=== PATIENT | female | born 1945 | race African-American/Black ===

== ENCOUNTER 2017-08-25 17:53 | Emergency (ER) | payer MEDICARE ==
[2017-08-25] MEDS ORDERED: NORMAL SALINE 1000 ML 1,000 ML IV ONE (18:23)
--- NOTE | 2017-08-25 19:00 | RADIOLOGY REPORT (SQ) ---
EXAM DESCRIPTION: CT HEAD WITHOUT COMPLETED DATE/TIME: 08/25/2017 6:13 pm REASON FOR STUDY: AMS COMPARISON: None. TECHNIQUE: Axial images acquired through the brain without intravenous contrast. Images reviewed wi th bone, brain and subdural windows. Additional sagittal and coronal reconstructions were generated. Images stored on PACS. All CT scanners at this facility use dose modulation, iterative reconstruction, and/or weight based d osing when appropriate to reduce radiation dose to as low as reasonably achievable (ALARA). [facility]: Dose Right [facility]: CareDose [facility]: Dose Right [facility]: Teradose 4D [facility]: Rattle RADIATION DOSE: mGy. LIMITATIONS: None. FINDINGS: VENTRICLES: Prominent. CEREBRUM: No masses. No hemorrhage. No midline shift. Areas of low density in the white matter mos t likely due to chronic micro-vascular ischemic change. No evidence for acute infarction. CEREBELLUM: No masses. No hemorrhage. No alteration of density. No evidence for acute infarction. EXTRAAXIAL SPACES: Mild age-related involutional change. No fluid collections. No masses. ORBITS AND GLOBE: No intra- or extraconal masses. Normal contour of globe without masses. CALVARIUM: No fracture. PARANASAL SINUSES: No fluid or mucosal thickening. SOFT TISSUES: No mass or hematoma. OTHER: No other significant finding. IMPRESSION: MILD CHRONIC CHANGES OF ATROPHY AND MICROVASCULAR ISCHEMIA. NO ACUTE PROCESS. EVIDENCE OF ACUTE STROKE: No TECHNICAL DOCUMENTATION: JOB ID: [id number] Quality ID # [id number]: Final reports with documentation of one or more dose reduction techniques (e.g., Au tomated exposure control, adjustment of the mA and/or kV according to patient size, use of iterative reconstruction technique) 2010 [employer]- All Rights Reserved Reading location - IP/workstation name: [email or web address]
[2017-08-25 19:04] LABS: ABSOLUTE LYMPHOCYTES (AUTO) 0.5 10^3/uL (0.5-4.7); ABSOLUTE MONOCYTES (AUTO) 0.3 10^3/uL (0.1-1.4); ABSOLUTE NEUT (AUTO) 4.8 10^3/uL (1.7-8.2); BASOPHILS % (AUTO) 0.2 % (0-2); EOSINOPHILS % (AUTO) 0.7 % (0-6); HEMOGLOBIN 8.7 g/dL (12.0-15.5); LYMPHOCYTES % (AUTO) 9.3 % (13-45); MEAN CORPUSCULAR HEMOGLOBIN 30.2 pg (27.0-33.4); MEAN CORPUSCULAR HGB CONC 32.1 g/dL (32.0-36.0); MEAN CORPUSCULAR VOLUME 94 fl (80-97); MONOCYTES % (AUTO) 5.8 % (3-13); PLATELET COUNT 348 10^3/uL (150-450); RED BLOOD COUNT 2.87 10^6/uL (3.72-5.28); RED CELL DISTRIBUTION WIDTH 18.7 % (11.5-14.0); TOTAL CELLS COUNTED % (AUTO) 100 %; WHITE BLOOD COUNT 5.7 10^3/uL (4.0-10.5)
[2017-08-25 19:09] LABS: INTERNATIONAL RATION (INR) 1.13
[2017-08-25 19:10] LABS: PARTIAL THROMBOPLASTIN TIME 31.1 SEC (23.5-35.8)
--- NOTE | 2017-08-25 19:14 | RADIOLOGY REPORT (SQ) ---
EXAM DESCRIPTION: CHEST SINGLE VIEW COMPLETED DATE/TIME: 08/25/2017 7:02 pm REASON FOR STUDY: AMS COMPARISON: None. EXAM PARAMETERS: NUMBER OF VIEWS: One view. TECHNIQUE: Single frontal radiographic view of the chest acquired. RADIATION DOSE: NA LIMITATIONS: None. FINDINGS: LUNGS AND PLEURA: Parenchymal opacity at the left lung base. Right lung is clear. MEDIASTINUM AND HILAR STRUCTURES: No masses. Contour normal. HEART AND VASCULAR STRUCTURES: Heart normal in size. Normal vasculature. BONES: No acute findings. HARDWARE: None in the chest. OTHER: No other significant finding. IMPRESSION: Left lower lobe pneumonia. TECHNICAL DOCUMENTATION: JOB ID: [id number] [employer]- All Rights Reserved Reading location - IP/workstation name: [email or web address]
[2017-08-25 19:28] LABS: ALANINE AMINOTRANSFERASE 17 U/L (9-52); ALBUMIN 2.7 g/dL (3.5-5.0); ALKALINE PHOSPHATASE 85 U/L (38-126); ANION GAP 13 (5-19); ASPARTATE AMINO TRANSFERASE 21 U/L (14-36); BILIRUBIN,DIRECT 0.6 mg/dL (0.0-0.4); BILIRUBIN,TOTAL 0.6 mg/dL (0.2-1.3); BLOOD UREA NITROGEN 18 mg/dL (7-20); CALCIUM 8.3 mg/dL (8.4-10.2); CARBON DIOXIDE 20 mmol/L (22-30); CHLORIDE 112 mmol/L (98-107); CREATINE KINASE 28 U/L (30-135); GLUCOSE 82 mg/dL (75-110); POTASSIUM 5.9 mmol/L (3.6-5.0); SODIUM 145.2 mmol/L (137-145); TOTAL PROTEIN 6.7 g/dL (6.3-8.2)
[2017-08-25 19:41] LABS: TROPONIN I < 0.012 ng/mL
[2017-08-25] MEDS ORDERED: VANCOMYCIN HCL INJ 1000 MG VIAL IV ONE (21:29)
[2017-08-25] MEDS ORDERED: CEFEPIME 1 GM/D5W RTU 1 GM/50 ML RTUPB IV ONE (21:31)
--- NOTE | 2017-08-25 22:52 | EKG REPORT ---
SEVERITY:- ABNORMAL ECG - SINUS RHYTHM BORDERLINE LEFT AXIS DEVIATION NONSPECIFIC T ABNORMALITIES, LATERAL LEADS : Confirmed by: Jordi Scott MD 25-Aug-2017 22:51:15
--- NOTE | 2017-08-26 00:04 | ER Document Report ---
ED General - General Chief Complaint: Altered Mental Status Stated Complaint: POSSIBLE SEIZURE Time Seen by Provider: 08/25/17 18:17 Mode of Arrival: Stretcher Information source: Relative, Emergency Med Personnel - [facility] Patient complains to provider of: New-onset seizure Onset: Just prior to arrival Onset/Duration: Sudden Quality of pain: No pain Notes: Patient is a 71-year-old female with a history of normal cancer, who was brought to the emergency room by EMS for new onset seizure activity, patient has a long course of recent hospitalizations at [facility] over the last few months, was previously living at home alone prior to these hospitalizations, at one point time was discharged to a care facility, family was unhappy with the care she received her so they took her home to care for her over the past week, over the last 2 days patient's behavior has changed and become more bizarre, she is combative, uncooperative and family became concerned , she is hallucinating at home at times, today daughter noted patient did have a seizure lasting approximately 2 minutes, they called EMS, when EMS arrived they found patient to be having a another seizure with lasted less than 1 minutes, they apparently went out to the ambulance to get medication and by the time they returned the seizure had subsided, there is no known history of seizure disorder previously, patient's oncologist is in the [facility] area , because of her course of hospitalization locally over the past few months she has been unable to follow-up with them, daughter does report she has been coughing quite a bit at home as well, she knows of no fever, no vomiting or diarrhea - Related Data Allergies/Adverse Reactions: ampicillin Allergy (Verified 08/25/17 20:03) ciprofloxacin [From Cipro] Allergy (Verified 08/25/17 20:03) codeine Allergy (Verified 08/25/17 20:03) hydrocodone [From Vicodin] Allergy (Verified 08/25/17 20:03) Iodinated Contrast- Oral and IV Dye Allergy (Verified 08/25/17 20:03) penicillin G Allergy (Verified 08/25/17 20:03) propoxyphene [From Darvocet-N] Allergy (Verified 08/25/17 20:03) Sulfa (Sulfonamide Antibiotics) Allergy (Verified 08/25/17 20:03) morphine Adverse Reaction (Verified 08/25/17 20:03) Past Medical History - General Information source: Relative - Social History Smoking Status: Unknown if Ever Smoked Frequency of alcohol use: None Drug Abuse: None Family History: Reviewed & Not Pertinent Patient has suicidal ideation: No Patient has homicidal ideation: No Neurological Medical History: Reports: Hx Seizures Endocrine Medical History: Reports: Hx Diabetes Mellitus Type 2 Renal/ Medical History: Denies: Hx Peritoneal Dialysis GI Medical History: Reports: Hx Gastroesophageal Reflux Disease Past Surgical History: Reports: Hx Abdominal Surgery Review of Systems - Review of Systems Constitutional: No symptoms reported EENT: No symptoms reported Cardiovascular: No symptoms reported Respiratory: Cough Gastrointestinal: No symptoms reported Genitourinary: No symptoms reported Female Genitourinary: No symptoms reported Musculoskeletal: No symptoms reported Skin: No symptoms reported Hematologic/Lymphatic: No symptoms reported Neurological/Psychological: Seizure -: Yes All other systems reviewed and negative Physical Exam - Vital signs Vitals: Pulse Resp BP Pulse Ox 98 24 H 133/76 H 98 08/25/17 18:06 08/25/17 18:06 08/25/17 18:06 08/25/17 18:06 Interpretation: Tachypneic - General General appearance: Alert - HEENT Head: Normocephalic, Atraumatic Eyes: Normal Conjunctiva: Normal Pupils: PERRL Mucous membranes: Dry - Respiratory Respiratory status: No respiratory distress Chest status: Nontender Breath sounds: Normal Chest palpation: Normal - Cardiovascular Rhythm: Regular Heart sounds: Normal auscultation Murmur: No - Abdominal Inspection: Normal Distension: No distension Bowel sounds: Normal Tenderness: Nontender Organomegaly: No organomegaly - Back Back: Normal, Nontender - Extremities General upper extremity: Normal inspection, Nontender, Normal color, Normal ROM , Normal temperature General lower extremity: Normal inspection, Nontender, Normal color, Normal ROM , Normal temperature, Normal weight bearing. No: Anish's sign - Neurological Neuro grossly intact: Yes [place] Coma Scale Eye Opening: Spontaneous Mike Coma Scale Verbal: Confused Mike Coma Scale Motor: Obeys Commands Mike Coma Scale Total: 14 Sensory: Normal - Skin Skin Temperature: Warm Skin Moisture: Dry Skin Color: Normal Course - Re-evaluation Re-evalutation: 08/26/17 00:02 Patient with new onset seizures, history of renal cancer, and evidence of pneumonia on chest x-ray today, family did request that patient be transferred to [facility] as this is where her oncologist practices, given the fact that this facility does not have a neurology showroom sales consultant and patient has new onset seizures this is a reasonable request, therefore a call was placed to [facility], spoke with the emergency medicine physician Dr. Solorio who graciously accepts patient on ER to ER transfer, patient stable at time of transfer of care 08/26/17 00:34 Patient seen and evaluated at bedside, stable vital signs, no further seizure activity noted while in the emergency department, patient stable for transport to tertiary [facility] for further evaluation and treatment - Vital Signs Vital signs: Temp Pulse Resp BP Pulse Ox 97.4 F 98 19 127/90 H 98 08/25/17 18:25 08/25/17 18:25 08/26/17 00:32 08/26/17 00:32 08/25/17 20:01 - Laboratory Result Diagrams: 08/25/17 18:43 08/25/17 18:43 Laboratory results interpreted by me: 08/25/17 08/25/17 18:43 18:43 RBC 2.87 L Hgb 8.7 L Hct 27.0 L RDW 18.7 H Seg Neutrophils % 84.0 H Lymphocytes % 9.3 L Sodium 145.2 H Potassium 5.9 H Chloride 112 H Carbon Dioxide 20 L Est GFR ( Amer) 55 L Est GFR (Non-Af Amer) 45 L Calcium 8.3 L Direct Bilirubin 0.6 H Creatine Kinase 28 L Albumin 2.7 L - Diagnostic Test Radiology reviewed: Image reviewed, Reports reviewed Discharge - Discharge Clinical Impression: New onset seizure Pneumonia Qualifiers: Pneumonia type: due to unspecified organism Laterality: left Lung location: lower lobe of lung Qualified Code(s): J18.1 - Lobar pneumonia, unspecified organism Condition: Fair Disposition: [place]
[2017-08-26 00:44] VITALS: BP 144/71
== END 2017-08-26 01:02 | disposition short-term general hospital (02) ==
LOC: ER 17:53
DX: R56.9 Unspecified convulsions (principal); J18.1 Lobar pneumonia, unspecified organism; R44.3 Hallucinations, unspecified; E11.9 Type 2 diabetes mellitus without complications; R05 Cough; R06.82 Tachypnea, not elsewhere classified; Z88.0 Allergy status to penicillin; Z88.1 Allergy status to other antibiotic agents; Z88.5 Allergy status to narcotic agent; Z91.040 Latex allergy status; Z88.2 Allergy status to sulfonamides; Z85.528 Personal history of other malignant neoplasm of kidney
CPT/HCPCS: 93005; 99285; 96361; 96365; 96367; 36415; 87040; 82553; 82962; 82550; 85025; 85610; 85730; 80053; 84484; 71045; 70450; 93010; J7030; J3370; J0692